=== PATIENT | female | born 1975 | race Hispanic/Latino ===

== ENCOUNTER → 2019-06-15 | Day surgery (SDC) | payer BC ==
[~2019-06-15] MED LIST: CLINDAMYCIN 600MG / 50ML 50 ML IV ONE; DEXAMETHASONE SOD PHOS INJ 4 MG/ML VIAL ONE; FENTANYL CITRATE/PF 100MCG/2 ML INJ ONE; KETOROLAC TROMETHAMINE 30 MG/ML VIAL ONE; LIDOCAINE HCL 2% LOCAL INJ 5 ML SDV VIAL INJ ONE; MIDAZOLAM HCL 2 MG/2 ML VIAL ONE; ONDANSETRON HCL INJ 2MG/ML 2ML 2 MG/ML VIAL ONE; PROPOFOL IV EMULSION 10 MG/ML 20 ML VIAL ONE; SEVOFLURANE INHAL SOLN 250 ML PEN BTL ONE
[2019-06-15 09:20] VITALS: BP 110/54
--- NOTE | 2019-06-15 10:18 | Operative Report ---
DATE OF PROCEDURE: 06/15/2019 SURGEON: Lv Shore MD TANK ERECTOR: Harsha Avalos, certified PA. PREOPERATIVE DIAGNOSIS: Right carpal tunnel syndrome. POSTOPERATIVE DIAGNOSIS: Right carpal tunnel syndrome. PROCEDURE: Right endoscopic carpal tunnel release. INDICATIONS: The patient is a 43-year-old lady, who has clinic signs and symptoms consistent with right carpal tunnel syndrome. She has failed conservative management and would like to proceed with definitive surgical intervention. The risks and benefits of an endoscopic carpal tunnel release have been explained. She states she understands and wishes to proceed. PROCEDURE IN DETAIL: The patient was brought to the operating room and placed under general anesthetic. Her right upper extremity was prepped and draped in a sterile manner. A preoperative time-out was performed. The extremity was exsanguinated and a proximal tourniquet was inflated to 250 mmHg. An incision was made over the flexion crease of the right wrist. The palmaris longus was retracted to the radial side of the wound. The flexor retinaculum was elevated and incised with a pair of tenotomy scissors. An elevator was used to tease the tenosynovium off the undersurface of the transverse carpal ligament. Dilators were placed and the hook of the hamate was palpated. The [employer] endoscope was placed into the carpal tunnel. The undersurface of the ligament was cleanly visualized without soft tissue interposition. The knife was deployed and the ligament was cut from distal to proximal. A full-thickness cut was noted. The proximal retinaculum was incised under direct visualization with a pair of blunt scissors. The incision was closed with two interrupted nylon stitches. A sterile bandage was applied. She was extubated and transported to recovery room in stable condition. There was no blood loss and all needle and sponge counts were correct. Lv Shore MD DR/SEAN /[id number]
== END | disposition home or self-care (01) ==
LOC: OR 05:23
PROVIDERS: ATTEND Specialist
DX: G56.01 Carpal tunnel syndrome, right upper limb (principal); E78.5 Hyperlipidemia, unspecified; Z88.0 Allergy status to penicillin; Z68.30 Body mass index [BMI] 30.0-30.9, adult
CPT/HCPCS: 29848; 81025; J1100; J1885; J2001; J2250; J2405; J2704; J3010

== ENCOUNTER → 2025-02-11 | Day surgery (SDC) | payer BC ==
[~2025-02-11] MED LIST changes: +ANUSOL-HC25 MG RC; -CLINDAMYCIN 600MG / 50ML 50 ML IV ONE; -DEXAMETHASONE SOD PHOS INJ 4 MG/ML VIAL ONE; -FENTANYL CITRATE/PF 100MCG/2 ML INJ ONE; -KETOROLAC TROMETHAMINE 30 MG/ML VIAL ONE; +MULTI-VITAMIN1 EACH PO; -ONDANSETRON HCL INJ 2MG/ML 2ML 2 MG/ML VIAL ONE; -SEVOFLURANE INHAL SOLN 250 ML PEN BTL ONE
[2025-02-11] MEDS: LACTATED RINGER'S 1,000 ML ONE (09:55)
[2025-02-11 11:19] VITALS: TEMP 97.3
[2025-02-11 11:40] VITALS: BP 121/70; PULSE 73; RESP 18; O2SAT 99
== END | disposition home or self-care (01) ==
LOC: OR 08:30
PROVIDERS: ATTEND Internal Medicine Gastroenterology
DX: D12.2 Benign neoplasm of ascending colon (principal); K63.5 Polyp of colon; K64.0 First degree hemorrhoids; K63.89 Other specified diseases of intestine; Z88.0 Allergy status to penicillin; Z68.30 Body mass index [BMI] 30.0-30.9, adult
CPT/HCPCS: 45384; J2003; J2250; J2704; J7121; 45378